=== PATIENT | female | born 1975 | race Caucasian/White ===

== ENCOUNTER 2020-06-17 18:00 | Emergency (ER) | payer OTHER ==
[2020-06-18] MEDS ORDERED: VISTARIL25 MG PO (01:04)
== END 2020-06-17 19:00 | disposition left against medical advice (07) ==
LOC: ER1 18:00
DX: F32.9 Major depressive disorder, single episode, unspecified (principal); Z53.21 Procedure and treatment not carried out due to patient leaving prior to being seen by health care provider

== ENCOUNTER 2020-06-17 23:15 | Emergency (ER) | payer OTHER ==
[2020-06-18] MEDS ORDERED: VISTARIL25 MG PO (01:04)
== END 2020-06-18 01:30 | disposition home or self-care (01) ==
LOC: ER1 23:15
DX: F32.9 Major depressive disorder, single episode, unspecified (principal); F41.1 Generalized anxiety disorder; F17.210 Nicotine dependence, cigarettes, uncomplicated
CPT/HCPCS: 99283

== ENCOUNTER 2020-11-15 06:31 | Emergency (ER) | payer OTHER ==
[~2020-11-15 06:31] MED LIST: VISTARIL25 MG PO
== END 2020-11-15 08:02 | disposition left against medical advice (07) ==
LOC: ER1 06:31
DX: Z53.21 Procedure and treatment not carried out due to patient leaving prior to being seen by health care provider (principal)
CPT/HCPCS: 81001; 84703